=== PATIENT | female | born 1985 | race Caucasian/White ===

== ENCOUNTER 2023-09-24 02:01 | Emergency (ER) | payer BC, MEDICAID, SELFPAY ==
[2023-09-24 02:07] VITALS: BP 149/85; PULSE 105; RESP 20; TEMP 35.7; O2SAT 100; BMI 22.6
[2023-09-24] MEDS: lidocaine-prilocaine cream 5 gm 2 APPLIC TOPICAL (02:22)
[2023-09-24] MEDS: ketorolac 60 mg/2 mL INJ IM (02:27)
--- NOTE | 2023-09-24 02:36 | W.ED.WOUNDLC ---
HPI - Wound/Laceration General: Chief Complaint: Wound/Laceration Stated Complaint: Back Injury Time Seen by Provider: 09/24/23 02:11 History of Present Illness: Patient presents to the ER with complaints of laceration along her right side of her back. Patient states she was closing the garage door when the garage door spring broke and the garage door slammed down scraping down the side of her back. Patient is bleeding is controlled. Patient has an unknown tetanus status. This happened right before she came in. Patient denies any loss of consciousness. Review of Systems General: Reports: 10 or more systems reviewed and unremarkable except in HPI and below Physical Exam Const: COMMON NORMALS: no acute distress, average body habitus, patient oriented x3, no limitations, healthy appearing, alert and well nourished HENMT: COMMON NORMALS: normocephalic, atraumatic, hearing grossly normal bilaterally, external ears normal, Normal external nose present, moist oral mucous membranes and oropharynx normal HEAD & SCALP: normocephalic and atraumatic NOSE: Normal external nose present EXTERNAL EAR: Yes external ears normal Neck/C-Spine: COMMON NORMALS: full ROM, no lymphadenopathy, supple, no meningeal signs, no JVD and Thyroid normal THYROID: Thyroid normal Chest: COMMONS NORMALS: normal inspection of the chest and normal palpation of entire chest wall Resp: COMMON NORMALS: normal respiratory effort, No retractions, No use of accessory muscles and clear to auscultation bilaterally AUSCULTATION: clear to auscultation bilaterally Cardio: COMMON NORMALS: no JVD, regular rate, regular rhythm, S1 normal heart sound present, S2 normal heart sound present, No gallops present (Cardio), No clicks present (Cardio), No murmurs present (Cardio) and No rub (Cardio) RATE: regular rate RHYTHM: regular rhythm HEART SOUNDS: S1 normal heart sound present and S2 normal heart sound present GI: COMMON NORMALS: Normal to inspection, nondistended, normoactive bowel sounds present, Soft to palpation, non-tender, No hepatosplenomegaly present and no masses PALPATION: Yes Soft to palpation and Yes No hepatosplenomegaly present Neuro: COMMON NORMALS: patient oriented x3 SENSORIUM/ORIENTATION: Yes alert MENINGEAL SIGNS: Yes no meningeal signs Skin: NARRATIVE SKIN EXAM: Approximately 8 inch abrasion type superficial laceration noted on her right flank area. Bleeding controlled. Course Vital Signs: Vital signs: Vital Signs Temperature 96.2 F L 09/24/23 02:07 Pulse Rate 105 H 09/24/23 02:07 Respiratory Rate 20 H 09/24/23 02:07 Blood Pressure 149/85 09/24/23 02:07 Pulse Oximetry 100 09/24/23 02:07 MDM - Wound/Laceration Medical Decision Making Patient's wound was anesthetized with Emla cream. The wound was cleaned and bandaged. No sutures were needed. Patient will be discharged on antibiotics. Patient is to follow-up with her PCP in approximately 7 days or sooner as needed. Differential Diagnosis Likely avulsion of skin; Unlikely laceration, abscess or abrasion Medical Records I reviewed the patient's medical records. Lab Data I reviewed the patient's lab results. No radiology studies performed this visit Discharge Plan Discharge Patient Disposition: Home Clinical Impression: Abrasion Condition: Stable Prescriptions: New sulfamethoxazole-trimethoprim [Bactrim DS] 800-160 mg tablet 1 tab PO BID 10 Days Qty: 20 0RF fluconazole [Diflucan] 200 mg tablet 200 mg PO DAILY Qty: 1 0RF Discharge Orders: Discharge ED (Routine); Ordered 09/24/23 Ordered By: Jose Last Patient Instructions: Abrasion Activity Restrictions/Additional Instructions: Please keep your wound clean and dry. Please change dressing as needed. Please take all your antibiotics as prescribed. Please take your Diflucan after you are finished with the antibiotics to prevent yeast infection. Please follow-up with your family practice doctor within 7 to 10 days as needed. Coding Level of Care Code ED Nurse Practitioner Adult for Elias Rodriguez
[2023-09-24] MEDS: tetanus-dipt-pertussis 0.5 mL SDV IM (03:33)
[2023-09-24 03:50] VITALS: BP 133/86; PULSE 90; O2SAT 100
== END 2023-09-24 03:50 | disposition home or self-care (01) ==
PROVIDERS: Emergency Provider Emergency Medicine
DX: S30.810A Abrasion of lower back and pelvis, initial encounter (principal); W20.8XXA Other cause of strike by thrown, projected or falling object, initial encounter; Z23 Encounter for immunization
CPT/HCPCS: 90471; 90715; 96372; 99284; J1885